=== PATIENT | male | born 1980 | race Caucasian/White ===

== ENCOUNTER → 2016-09-03 | Outpatient (CLI) | payer BC ==
--- NOTE | 2016-09-03 08:05 | DIAGNOSTIC IMAGING REPORT ---
MRI THE RIGHT KNEE NO CONTRAST CLINICAL HISTORY: Right knee pain. Suspected meniscal tear COMPARISON STUDY: No previous studies for comparison. FINDINGS: Imaging was performed in the sagittal coronal and axial planes. There are no areas of marrow edema to indicate occult fracture or bone bruise. The quadriceps and patellar tendons appear intact. The anterior posterior crucial ligaments appear intact. The medial and lateral collateral ligaments appear intact. The patellar retinacular structures appear intact. No meniscal tears are visualized. There is prominent subcutaneous edema/fluid both anterior and lateral, beginning at the inferior patellar level.. IMPRESSION: 1. Prominent subcutaneous edema/fluid beginning at the inferior patellar level. 2. No evidence of cruciate or collateral ligament disruption. No meniscal tears identified. Electronically signed by: Kiko Tarango M.D. 09/03/2016 8:03 AM Dictated Date/Time: 09/03/2016 7:57 AM
== END | disposition home or self-care (01) ==
PROVIDERS: ATTEND Orthopaedic Surgery
DX: M25.561 Pain in right knee (principal)